=== PATIENT | female | born 1955 | race Two or more races ===

== ENCOUNTER 2021-02-17 11:44 | Emergency (ER) | payer OTHER ==
[~2021-02-17] VITALS: Ht 162.6 cm; Wt 77.1 kg
== END 2021-02-17 15:37 | disposition home or self-care (01) ==
LOC: ER 11:44
DX: S01.81XA Laceration without foreign body of other part of head, initial encounter (principal); W18.39XA Other fall on same level, initial encounter; Y93.9 Activity, unspecified; Y92.59 Other trade areas as the place of occurrence of the external cause